=== PATIENT | female | born 1995 | race Two or more races ===

== ENCOUNTER 2022-02-06 08:56 | Emergency (ER) | payer MEDICAID ==
[~2022-02-06] VITALS: Ht 162.6 cm; Wt 180.0 kg
[2022-02-06 09:36] VITALS: BP 132/81
[2022-02-06] MEDS ORDERED: HYDROcodone-ACET 5/325MG TAB PO ONE (09:45)
[2022-02-06] MEDS ORDERED: IBUP800T27 PO ×3 (09:58→10:18)
== END 2022-02-06 10:24 | disposition home or self-care (01) ==
LOC: ER 09:02
DX: S82.831A Other fracture of upper and lower end of right fibula, initial encounter for closed fracture (principal); F17.210 Nicotine dependence, cigarettes, uncomplicated; Z88.0 Allergy status to penicillin; W18.09XA Striking against other object with subsequent fall, initial encounter; Y93.89 Activity, other specified; Y92.89 Other specified places as the place of occurrence of the external cause; Y99.8 Other external cause status
CPT/HCPCS: 29515; 73610

== ENCOUNTER 2022-02-12 08:32 | Emergency (ER) | payer MEDICAID ==
[~2022-02-12] VITALS: Ht 162.6 cm; Wt 81.0 kg
[~2022-02-12 08:32] MED LIST: IBUP800T27 PO
[2022-02-12 08:54] VITALS: BP 160/90
[2022-02-12] MEDS ORDERED: IBUPROFEN 800 MG TAB PO ONE (09:45)
[2022-02-12] MEDS ORDERED: IBUP800T27 PO (10:08)
== END 2022-02-12 10:11 | disposition home or self-care (01) ==
LOC: ER 08:32
DX: M79.604 Pain in right leg (principal); Z47.89 Encounter for other orthopedic aftercare; S82.831D Other fracture of upper and lower end of right fibula, subsequent encounter for closed fracture with routine healing; X58.XXXD Exposure to other specified factors, subsequent encounter
CPT/HCPCS: 29515